=== PATIENT | female | born 1980 | race Caucasian/White ===

== ENCOUNTER 2018-12-15 09:53 | Emergency (ER) | payer SELFPAY ==
[2018-12-15] MEDS ORDERED: KETOROLAC 30 MG INJ IV (10:23)
[2018-12-15] MEDS ORDERED: ONDANSETRON 4 MG INJ (10:46)
[2018-12-15] MEDS: morphine 2 MG INJ IV (10:47)
[2018-12-15] MEDS: SOD CHLORIDE 0.9% 1,000 ML IV (10:47)
[2018-12-15] MEDS: ONDANSETRON 4 MG INJ IV ×2 (10:47→11:39)
[2018-12-15] MEDS: HYDROmorphONE 0.5 MG/0.5 ML SYG IV (11:39)
[2018-12-15] MEDS: CEFTRIAXONE 1 GM/50 ML (PMX) 50 ML IVPB (12:15)
== END 2018-12-15 12:43 | disposition home or self-care (01) ==
LOC: FTE 09:53
DX: N39.0 Urinary tract infection, site not specified (principal); K57.90 Diverticulosis of intestine, part unspecified, without perforation or abscess without bleeding; N20.0 Calculus of kidney
CPT/HCPCS: 36415; 74176; 80053; 81001; 81025; 83690; 85025; 87086; 96374; 96375; 96376; 99285-25